=== PATIENT | female | born 1930 | race Caucasian/White ===

== ENCOUNTER → 2016-05-02 | Outpatient (CLI) | payer OTHER ==
[~2016-05-02] MED LIST: ALLEGRA ALLERG180 MG PO; ARICEPT10 MG PO; B-12500 MCG PO; BUSPIRONE HCL5 MG PO; COUMADIN5 MG PO; DIOVAN160 MG PO; FLONASE ALLER15.8 ML; GLUCOPHAGE 500500 MG PO; LASIX20 MG PO; LEVAQUIN500 MG PO; LIPITOR TAB 2020 MG PO; NAMENDA XR28 MG PO; NORVASC 5 MG TAB5 MG PO; PROVENTIL HFA 61 INH INH; SYNTHROID50 MCG PO; VITAMIN D 11000 UNIT PO
== END ==
LOC: RT 14:13
DX: R09.02 Hypoxemia (principal); Z88.5 Allergy status to narcotic agent; Z88.8 Allergy status to other drugs, medicaments and biological substances
CPT/HCPCS: 36600; 82803